=== PATIENT | female | born 1985 | race Caucasian/White ===

== ENCOUNTER 2019-06-05 14:59 | Inpatient (IN) | payer MEDICAID ==
[~2019-06-05] VITALS: Ht 160 cm; Wt 84.8 kg
[2019-06-05] MEDS ORDERED: OXYTOCIN/0.9 % SODIUM CHLORIDE 1,000 ML IV SCH (15:28)
[2019-06-05] MEDS ORDERED: TERBUTALINE SULFATE 1 MG/ML VIAL SUBCUT ONE (15:30)
[2019-06-05] MEDS ORDERED: NALBUPHINE HCL 10 MG/ML AMP IVP PRN (15:30)
[2019-06-05] MEDS ORDERED: DINOPROSTONE 10 MG SUPP VG ONE (15:30)
[2019-06-05 16:03] LABS: BASOPHILS % (AUTO) 0.4 % (0.0-2.0); EOSINOPHILS % (AUTO) 0.3 % (0.0-4.0); HEMATOCRIT 34.2 % (36-48); HEMOGLOBIN 11.2 g/dL (12.0-16.0); LYMPHOCYTES # (AUTO) 1.6 K/uL (1.0-5.5); LYMPHOCYTES % (AUTO) 19.7 % (20.5-51.5); MEAN CORPUSCULAR HEMOGLOBIN 26 pg (27-31); MEAN CORPUSCULAR HGB CONC 33 % (32-36); MEAN CORPUSCULAR VOLUME 80 fL (79.0-98.0); MONOCYTES # (AUTO) 0.4 K/uL (0.0-1.0); MONOCYTES % (AUTO) 5.1 % (1.7-9.3); NEUTROPHILS % (AUTO) 74.5 % (40.0-70.0); PLATELET COUNT (AUTO) 221 K/uL (130-430); RED BLOOD CELL COUNT(AUTO) 4.28 MIL/uL (4.2-6.2); RED CELL DISTRIBUTION WIDTH 14.5 % (9.0-15.0); WHITE BLOOD COUNT (AUTO) 8.1 K/uL (4.8-10.8)
[2019-06-05 16:36] VITALS: BP_SYST 127
[2019-06-05] MEDS ORDERED: LR 500 ML IV ONE (19:45)
[2019-06-05] MEDS ORDERED: FENT2mCg/mL-ROPIVA0.2%/NS EPID 200 ML EP SCH (19:45)
[2019-06-05] MEDS ORDERED: ROPIVACAINE HCL/PF 0.2% 200 ML ONE (19:47)
[2019-06-05] MEDS ORDERED: fentaNYL CITRATE/PF 100 MCG/2 ML AMP ONE (19:47)
[2019-06-05] MEDS: LR 1,000 ML IV SCH ×3 (20:00→23:00)
[2019-06-06] MEDS: LR 1,000 ML IV SCH (01:06)
[2019-06-06] MEDS ORDERED: OXYCODONE/ACETAMINOPHEN 5-325 TABLET PO PRN (02:15)
[2019-06-06] MEDS ORDERED: DERMOPLAST SPRAY TP PRN (04:15)
[2019-06-06] MEDS ORDERED: WITCH HAZEL LEAF 1 MED.PAD MED.PAD TP PRN (04:15)
[2019-06-06] MEDS: IBUPROFEN 800 MG TABLET PO PRN ×4 (04:26→23:50)
[2019-06-06] MEDS: OXYCODONE/ACETAMINOPHEN 5-325 TABLET PO PRN ×4 (07:52→21:55)
[2019-06-06] MEDS ORDERED: DOCUSATE SODIUM 100 MG CAPSULE PO ONE (12:38)
[2019-06-07] MEDS: IBUPROFEN 800 MG TABLET PO PRN ×4 (06:06→23:51)
[2019-06-07] MEDS: OXYCODONE/ACETAMINOPHEN 5-325 TABLET PO PRN ×2 (08:07→20:42)
[2019-06-07] MEDS ORDERED: DOCUSATE SODIUM 100 MG CAPSULE PO ONE (12:44)
[2019-06-07] MEDS ORDERED: DOCUSATE SODIUM 100 MG CAPSULE PO PRN (12:45)
[2019-06-08] MEDS: IBUPROFEN 800 MG TABLET PO PRN (05:50)
== END 2019-06-08 11:00 | disposition home or self-care (01) | DRG 560 ==
LOC: SPU 14:59
PROVIDERS: ADMIT Obstetrics & Gynecology; ATTEND Obstetrics & Gynecology
PROC: 10E0XZZ Delivery of Products of Conception, External Approach (ICD-10-PCS; principal; 2019-06-06)
PROC: 3E0R3BZ Introduction of Anesthetic Agent into Spinal Canal, Percutaneous Approach (ICD-10-PCS; 2019-06-06)
PROC: 00HU33Z Insertion of Infusion Device into Spinal Canal, Percutaneous Approach (ICD-10-PCS; 2019-06-06)
PROC: 10907ZC Drainage of Amniotic Fluid, Therapeutic from Products of Conception, Via Natural or Artificial Opening (ICD-10-PCS; 2019-06-06)
PROC: 3E033VJ Introduction of Other Hormone into Peripheral Vein, Percutaneous Approach (ICD-10-PCS; 2019-06-06)
PROC: 0KQM0ZZ Repair Perineum Muscle, Open Approach (ICD-10-PCS; 2019-06-06)
DX: O70.1 Second degree perineal laceration during delivery (principal); O41.03X0 Oligohydramnios, third trimester, not applicable or unspecified; O69.81X0 Labor and delivery complicated by cord around neck, without compression, not applicable or unspecified; Z3A.38 38 weeks gestation of pregnancy; Z37.0 Single live birth
CPT/HCPCS: 36415; 85025; 86592; 86886; 86900; 86901; J2300; J2590; J3010; J7120